=== PATIENT | male | born 1990 | race African-American/Black ===

== ENCOUNTER 2017-10-06 02:37 | Emergency (ER) | payer OTHER ==
--- NOTE | 2017-10-06 03:20 | ED ---
URI HPI - General Chief Complaint: Upper Respiratory Infection Stated Complaint: ENT Time Seen by Provider: 10/06/17 02:59 Source: patient, RN notes reviewed Mode of arrival: ambulatory Limitations: no limitations - History of Present Illness Initial Comments: This is a 27-year-old male who presents to the emergency department with chief complaint of sore throat and sinus congestion. Patient states that his symptoms started 3 days ago. He does report intermittent fevers and chills but has not had any recorded temperatures. He does state that he has a cough but is a current every day smoker. Patient states that he has difficulty swallowing due to the pain. Denies any difficulty breathing. Denies abdominal pain, nausea or vomiting. - Related Data Previous Rx's Medication Instructions Recorded Amoxicillin 875 mg PO Q12HR #20 tablet 10/06/17 Allergies Allergy/AdvReac Type Severity Reaction Status Date / Time shellfish derived [Shellfish] Allergy Rash/Hives Verified 10/06/17 02:54 Review of Systems ROS Statement: Those systems with pertinent positive or pertinent negative responses have been documented in the HPI. ROS Other: All systems not noted in ROS Statement are negative. Past Medical History Additional Past Medical History / Comment(s): hyperthyroid. History of Any Multi-Drug Resistant Organisms: None Reported Past Surgical History: No Surgical Hx Reported Past Psychological History: No Psychological Hx Reported Smoking Status: Current every day smoker Past Alcohol Use History: Daily, Heavy Past Drug Use History: None Reported General Exam - General Exam Comments Initial Comments: General: Awake and alert, well-developed; in no apparent distress. Afebrile. HEENT: Head atraumatic, normocephalic. Pupils are equal, round and reactive to light. Extraocular movements intact. Oropharynx moist with erythema. No tonsillar enlargement or exudates noted. Neck: Supple. Normal ROM. No tender cervical lymphadenopathy. Cardiovascular: Regular rate and rhythm. No murmurs, rubs or gallops. Chest symmetrical. Respiratory: Lungs clear to auscultation bilaterally. No wheezes, rales or rhonchi. Normal respiratory effort with no use of accessory muscles. Musculoskeletal: Normal ROM, no tenderness bilateral upper and lower extremities. Ambulating normally. Skin: [place], warm and dry without rashes or lesions. Neurological: Alert and oriented x3. CN II-XII grossly intact. Speech is fluent and answers are appropriate. No focal neuro deficits. Psychiatric: Normal mood and affect. No overt signs of depression or anxiety noted. Limitations: no limitations Course Vital Signs 10/06/17 02:50 Temperature 98.8 F Pulse Rate 106 H Respiratory 16 Rate Blood Pressure 135/83 O2 Sat by Pulse 99 Oximetry Medical Decision Making - Medical Decision Making This is a 27-year-old male who presents to the emergency department with chief complaint of sore throat. On presentation, vital signs are stable and patient is afebrile. Rapid strep was positive. Patient will be started on antibiotics. He is in no acute distress and will be discharged home. He is in agreement and voices understanding. All questions were answered. - Lab Data Lab Results 10/06/17 Range/Units 03:32 Group A Strep Rapid Positive A (Negative) Disposition Clinical Impression: Acute streptococcal pharyngitis Disposition: HOME SELF-CARE Condition: Good Instructions: Strep Throat (ED) Additional Instructions: Please take medications as prescribed. Please follow up with primary care provider within 1-2 days. Return to emergency department if symptoms should worsen or any concerns arise. Prescriptions: Amoxicillin 875 mg PO Q12HR #20 tablet Referrals: None,Stated [Primary Care Provider] - 1-2 days Time of Disposition: 04:05
[2017-10-06] MEDS ORDERED: ACETAMINOPHEN TAB 500 MG TAB PO STA (04:25)
[2017-10-06 04:31] VITALS: BP 116/66; PULSE 94; RESP 18; TEMP 100.7
== END 2017-10-06 04:30 | disposition home or self-care (01) ==
LOC: EC 02:37
DX: J02.0 Streptococcal pharyngitis (principal); F17.200 Nicotine dependence, unspecified, uncomplicated; Z91.013 Allergy to seafood
CPT/HCPCS: 36415; 86308; 87430; 99283

== ENCOUNTER → 2024-03-17 | Outpatient (CLI) | payer OTHER ==
--- NOTE | 2024-04-19 15:22 | CONS ---
CONSULTATION 34-year-old gentleman having [facility] for possible obstructive sleep apnea-hypopnea syndrome. HISTORY OF PRESENT ILLNESS: Sleep-wake evaluation. The patient's usual sleep schedule on weekdays from 11 a.m. until 8:00 p.m. The patient works at [employer]. On days off, he does not have any regular schedule and goes to [place] anytime and gets up anytime. He does have problems with falling asleep, has TV set in bedroom. The patient usually sleeps on the side position with loud snoring and awakenings from sleep up to 3 times. The patient has difficulties to initiate sleep, has TV set in bedroom. No history of hypnagogic hallucinations, sleep paralysis or cataplexy. During the day, the patient feels sleepiness. [place] Sleepiness Scale increased to 11. The patient takes one nap in the morning. PAST MEDICAL HISTORY: Positive for Graves disease with a history of treatment with radioactive iodine. PAST SURGICAL HISTORY: None. MEDICATIONS: None. SOCIAL HISTORY: Positive history of smoking for about 10 pack years. Alcohol consumption occasional. REVIEW OF SYSTEMS: Snoring, multiple awakenings from sleep, sleepiness during the day. No fevers. No double vision. No recent chest pain. No shortness of breath. No abdominal pain. No bleeding episodes. No blood in the urine. No seizure episodes. FAMILY HISTORY: Hypertension, heart problems, arthritis, bronchitis, diabetes. PHYSICAL EXAMINATION: GENERAL: 34-year-old gentleman without distress. VITAL SIGNS: BP 165/98, HR 85, RR 18, height 5 feet 6-3/4 inches, weight 299.6 pounds, BMI 47.2, temperature 98.1, oxygen saturation at room air 97%. HEENT: PERRLA, EOMI, evaluation of oropharynx showed extremely low position of soft palate, Mallampati 4. NECK: Wide and 20-1/3 inches in circumference. Supple, no JVD. Thyroid is not palpable. LUNGS: Clear to percussion and to auscultation. Good air exchange. No wheezing or rhonchi. HEART: S1, S2 regular. No murmurs, gallops, or rubs. ABDOMEN: Obese. Soft and nontender. Bowel sounds are present. No organomegaly appreciated. EXTREMITIES: No clubbing or cyanosis. CAB STARTER: Awake, alert, and oriented X3. Cranial nerves 2 to 7 intact. There is no fasciculation or atrophy noted. No focal deficits observed. IMPRESSION: 1. Loud snoring, multiple awakenings from sleep, extremely low position of soft palate, Mallampati 4, extremely wide neck, 20-1/3 inches in circumference, sleepiness with [place] Sleepiness Scale increased to 11. Obstructive sleep apnea- hypopnea syndrome, possibly in severe range. 2. Obesity, BMI 47.2. 3. Hypertension in the office today. 4. History of Graves disease, status post treatment with radioactive iodine. PLAN: 1. Polysomnography for evaluation of the patient breathing during sleep. 2. Following plan after reading sleep study. 3. Aggressive losing weight program. 4. Sleep hygiene with time in bed for at least 8 hours. 5. Precautions related to driving. No driving if feeling sleepiness. Thank you very much for referring this patient for consultation. MMODL / IJN: [id number] /
== END ==
LOC: 3 N SLEEP 14:18
PROVIDERS: ATTEND Internal Medicine
CPT/HCPCS: 99202

== ENCOUNTER 2024-11-13 12:28 | Emergency (ER) | payer OTHER ==
[2024-11-13 12:34] VITALS: RESP 20
--- NOTE | 2024-11-13 13:43 | XR ---
EXAMINATION TYPE: XR ribs RT w pa chest xray DATE OF EXAM: 11/13/2024 1:26 PM COMPARISON: None. CLINICAL INDICATION: Male, 34 years old with history of Pain, pain TECHNIQUE: 2 view(s) obtained. Exam supplemental frontal chest FINDINGS: Heart size is enlarged. Pulmonary vasculature is normal. Mild infiltrate may be silhouetting the left diaphragm. No pneumothorax is evident. Right ribs are examined in 2 projections. No displaced rib fractures evident. IMPRESSION: 1. No acute right rib fractures. [facility], , 11/13/2024 1:40 PM
--- NOTE | 2024-11-13 14:20 | ED ---
General Adult HPI - General Chief complaint: Recheck/Abnormal Lab/Rx Stated complaint: right rib pain Time Seen by Provider: 11/13/24 14:00 Source: patient, RN notes reviewed Mode of arrival: ambulatory Limitations: no limitations - History of Present Illness Initial comments: This is a 34-year-old male who presents to the emergency department for pain o sergio the right rib cage. States that he first noticed this a week ago, however the pain has started to become substantially worse. Denies any injuries. Pain is worse when he moves, coughs, or sneezes. Does not necessarily feel like he is more short of breath than normal. Denies any pain in the chest or radiation of pain down into the abdomen or back, it is all directly on the side. denies any nausea or vomiting. Denies any history of similar pain in the past. - Related Data Previous Rx's Medication Instructions Recorded Amoxicillin 875 mg PO Q12HR #20 tablet 10/06/17 Cyclobenzaprine [Flexeril] 10 mg PO TID PRN #30 tab 11/13/24 Ibuprofen 800 mg PO Q8H PRN #30 tab 11/13/24 Lidocaine 5% Patch [Lidoderm 5% 1 patch TOPICAL DAILY PRN #30 patch 11/13/24 Patch] Allergies Allergy/AdvReac Type Severity Reaction Status Date / Time shellfish derived [Shellfish] Allergy Rash/Hives Verified 11/13/24 12:33 Review of Systems ROS Statement: Those systems with pertinent positive or pertinent negative responses have been documented in the HPI. ROS Other: All systems not noted in ROS Statement are negative. Past Medical History Additional Past Medical History / Comment(s): hyperthyroid. History of Any Multi-Drug Resistant Organisms: None Reported Past Surgical History: No Surgical Hx Reported Past Psychological History: No Psychological Hx Reported Smoking Status: Current every day smoker Past Alcohol Use History: Daily, Heavy Past Drug Use History: None Reported General Exam Limitations: no limitations General appearance: alert, in no apparent distress Head exam: Present: atraumatic, normocephalic, normal inspection Respiratory exam: Present: normal lung sounds bilaterally, chest wall tenderness (Right rib cage). Absent: respiratory distress, wheezes, rales, rhonchi, stridor Cardiovascular Exam: Present: regular rate, normal rhythm GI/Abdominal exam: Present: soft. Absent: distended, tenderness Neurological exam: Present: alert, oriented X3, CN II-XII intact Psychiatric exam: Present: normal affect, normal mood Skin exam: Present: warm, dry, intact, normal color. Absent: rash Course Vital Signs 11/13/24 11/13/24 11/13/24 12:31 14:33 15:47 Temperature 97.6 F 97.9 F Pulse Rate 91 88 85 Respiratory 20 20 20 Rate Blood Pressure 160/109 156/96 147/93 O2 Sat by Pulse 99 97 Oximetry Medical Decision Making - Medical Decision Making This is a 34-year-old male who presents to the emergency department for right side pain. Was pt. sent in by a medical professional or institution? @ -No Did you speak to anyone other than the patient for history? @ -No Did you review nursing and triage notes? @ -Yes, and I agree, it is accurate with regards to the patient's symptoms. Were old charts reviewed? @ -No Differential Diagnosis? @ -Rib contusion, pneumothorax, pneumonia, PE, this is not meant to be an all- inclusive list. EKG interpreted by me (3pts min.)? @ -EKG interpreted by me demonstrating the following: Sinus rhythm. Ventricular rate 83 bpm, IN interval 173 ms, QRS duration 130 ms, QTc 430 ms. X-rays interpreted by me (1pt min.)? @ -Chest x-ray obtained, my interpretation identifies no localized consolidations or infiltrates. CT interpreted by me (1pt min.)? @ -Not obtained U/S interpreted by me (1pt. min.)? @ -Not obtained What testing was considered but not performed? (CT, X-rays, U/S, labs)? Why? @ -None What meds were considered but not given? Why? @ -None Did you discuss the management of the patient with other professionals? @ -No Did you reconcile home meds? @ -No Was smoking cessation discussed for >3mins.? @ -I discussed smoking cessation for greater than 3 minutes. The risk of smoking were discussed with the patient including but not limited to risks of cancer, stroke, coronary artery disease and COPD. Also discussed with patient were multiple methods of quitting smoking. Lastly we discussed the financial cost of smoking. Was critical care preformed (if so, how long)? @ -No Were there social determinants of health that impacted care today? How? (Homelessness, low income, unemployed, alcoholism, drug addiction, transportation, low edu. Level, literacy, decrease access to med. care, detention, rehab)? @ -No Was there de-escalation of care discussed even if they declined? (Discuss DNR or withdrawal of care, Hospice)? @ -No What co-morbidities impacted this encounter? (DM, HTN, Smoking, COPD, CAD, Cancer, CVA, Hep., AIDS, mental health diagnosis, sleep apnea, morbid obesity)? @ -Smoking Was patient admitted / discharged? @ -Discharged. We did obtain lab work including a D-dimer and troponin to evaluate for the possibility of a pulmonary embolus. Lab work was unremarkable. D-dimer and troponin negative. X-ray of the chest and right rib cage obtained revealing no acute process. Symptoms likely musculoskeletal in nature given that it is substantially worse with any movement. I did offer a CT scan to look for any other acute pathology causing his symptoms. However, patient declined and states that he would rather go home and see how he does. Ibuprofen, Flexeril, and lidocaine patches prescribed. Advised follow-up with his PCP for reevaluation. Patient discharged home in stable condition. Case discussed with ED attending, Dr. Enrique. Return precautions reviewed in depth, the patient is instructed to return to the emergency department with any new, worsening, or concerning symptoms. Patient verbalized understanding. Undiagnosed new problem with uncertain prognosis? @ -None Drug Therapy requiring intensive monitoring for toxicity (Heparin, Nitro, Insulin, Cardizem)? @ -None Were any procedures done? @ -None Diagnosis/symptom? @ -Right side pain, pain over right rib cage Acute, or Chronic, or Acute on Chronic? @ -Acute Uncomplicated (without systemic symptoms) or Complicated (systemic symptoms)? @ -Uncomplicated Side effects of treatment? @ -None Exacerbation, Progression, or Severe Exacerbation] @ -Not applicable Poses a threat to life or bodily function? @ -No - Lab Data Result diagrams: 11/13/24 14:37 11/13/24 14:37 Lab Results 11/13/24 11/13/24 11/13/24 Range/Units 14:37 14:37 14:37 WBC 6.27 (4.50-10.00) 10*3/uL RBC 5.63 H (4.40-5.60) 10*6/uL Hgb 16.5 (13.0-17.0) g/dL Hct 47.2 (39.6-50.0) % MCV 83.8 (80.0-97.0) fL MCH 29.3 (27.0-32.0) pg MCHC 35.0 (32.0-37.0) g/dL Plt Count 203 (140-440) 10*3/uL MPV 10.3 (9.5-12.2) fL Immature Gran % (Auto) 0.5 % Neutrophils % 50.6 % Lymphocytes % 37.2 % Monocytes % 8.6 % Eosinophils % 1.8 % Basophils % 1.3 % Immature Gran # 0.03 (0.00-0.04) 10*3/uL Neutrophils # 3.18 (1.80-7.70) 10*3/uL Lymphocytes # 2.33 (0.90-5.00) 10*3/uL Monocytes # 0.54 (0.20-1.00) 10*3/uL Eosinophils # 0.11 (0.04-0.35) 10*3/uL Basophils # 0.08 (0.00-0.10) 10*3/uL Manual Slide Review Performed Immature Plt Fraction 4.6 (1.1-6.1) % D-Dimer 0.20 (<0.60) mg/L FEU Sodium 140 (137-145) mmol/L Potassium 4.6 (3.5-5.1) mmol/L Chloride 102 (98-107) mmol/L Carbon Dioxide 30 (22-30) mmol/L Anion Gap 8 mmol/L BUN 15 (9-20) mg/dL Creatinine 0.85 (0.66-1.25) mg/dL Est GFR (CKD-EPI)AfAm >90 (>60 ml/min/1.73 sqM) Est GFR (CKD-EPI)NonAf >90 (>60 ml/min/1.73 sqM) Glucose 104 H (74-99) mg/dL Calcium 9.5 (8.4-10.2) mg/dL Total Bilirubin 1.2 (0.2-1.3) mg/dL AST 39 (17-59) U/L ALT 40 (4-49) U/L Alkaline Phosphatase 44 (38-126) U/L Troponin I (0.000-0.034) ng/mL Total Protein 8.0 (6.3-8.2) g/dL Albumin 4.7 (3.5-5.0) g/dL 11/13/24 Range/Units 14:37 WBC (4.50-10.00) 10*3/uL RBC (4.40-5.60) 10*6/uL Hgb (13.0-17.0) g/dL Hct (39.6-50.0) % MCV (80.0-97.0) fL MCH (27.0-32.0) pg MCHC (32.0-37.0) g/dL Plt Count (140-440) 10*3/uL MPV (9.5-12.2) fL Immature Gran % (Auto) % Neutrophils % % Lymphocytes % % Monocytes % % Eosinophils % % Basophils % % Immature Gran # (0.00-0.04) 10*3/uL Neutrophils # (1.80-7.70) 10*3/uL Lymphocytes # (0.90-5.00) 10*3/uL Monocytes # (0.20-1.00) 10*3/uL Eosinophils # (0.04-0.35) 10*3/uL Basophils # (0.00-0.10) 10*3/uL Manual Slide Review Immature Plt Fraction (1.1-6.1) % D-Dimer (<0.60) mg/L FEU Sodium (137-145) mmol/L Potassium (3.5-5.1) mmol/L Chloride (98-107) mmol/L Carbon Dioxide (22-30) mmol/L Anion Gap mmol/L BUN (9-20) mg/dL Creatinine (0.66-1.25) mg/dL Est GFR (CKD-EPI)AfAm (>60 ml/min/1.73 sqM) Est GFR (CKD-EPI)NonAf (>60 ml/min/1.73 sqM) Glucose (74-99) mg/dL Calcium (8.4-10.2) mg/dL Total Bilirubin (0.2-1.3) mg/dL AST (17-59) U/L ALT (4-49) U/L Alkaline Phosphatase (38-126) U/L Troponin I 0.012 (0.000-0.034) ng/mL Total Protein (6.3-8.2) g/dL Albumin (3.5-5.0) g/dL - Radiology Data Radiology results: report reviewed, image reviewed Disposition Clinical Impression: Right sided abdominal pain, Rib pain on right side, Nicotine dependence Disposition: HOME SELF-CARE Additional Instructions: Return to the emergency department with any new, worsening, or concerning sy mptoms. Alternate with ibuprofen and Tylenol as needed for pain relief. You can also apply the lidocaine patches daily. Reach out to the primary care providers listed below to become established for ongoing medical care and reevaluation of ongoing symptoms. Prescriptions: Cyclobenzaprine [Flexeril] 10 mg PO TID PRN #30 tab PRN Reason: Pain Ibuprofen 800 mg PO Q8H PRN #30 tab PRN Reason: Pain Lidocaine 5% Patch [Lidoderm 5% Patch] 1 patch TOPICAL DAILY PRN #30 patch PRN Reason: Pain Is patient prescribed a controlled substance at d/c from ED?: No Referrals: None,Stated [Primary Care Provider] - 1-2 days Forms: Area PCPs Time of Disposition: 15:39
[2024-11-13] MEDS: KETOROLAC 15 MG/ML 1 ML VIAL IM STA (14:55)
[2024-11-13] MEDS: ORPHENADRINE 30 MG/ML 2 ML VIAL IM STA (14:56)
[2024-11-13 15:06] LABS: Basophils # (A) 0.08 10*3/uL (0.00-0.10); Basophils % (A) 1.3 %; Eosinophils # (A) 0.11 10*3/uL (0.04-0.35); Eosinophils % (A) 1.8 %; HCT 47.2 % (39.6-50.0); HGB 16.5 g/dL (13.0-17.0); Immature Platelet Fraction 4.6 % (1.1-6.1); Lymphocytes # (A) 2.33 10*3/uL (0.90-5.00); Lymphocytes % (A) 37.2 %; MCH 29.3 pg (27.0-32.0); MCV 83.8 fL (80.0-97.0); Mean Platelet Volume 10.3 fL (9.5-12.2); Monocytes # (A) 0.54 10*3/uL (0.20-1.00); Monocytes % (A) 8.6 %; Neutrophils # (A) 3.18 10*3/uL (1.80-7.70); Neutrophils % (A) 50.6 %; Platelet Count 203 10*3/uL (140-440); RBC 5.63 10*6/uL (4.40-5.60); RDW 13.4 % (11.5-14.5); WBC 6.27 10*3/uL (4.50-10.00)
[2024-11-13 15:10] LABS: ALT 40 U/L (4-49); African American GFR (CKD) >90 (>60 ml/min/1.73 sqM); Anion Gap 8 mmol/L; Blood Urea Nitrogen 15 mg/dL (9-20); Calcium 9.5 mg/dL (8.4-10.2); Carbon Dioxide 30 mmol/L (22-30); Chloride 102 mmol/L (98-107); Glucose 104 mg/dL (74-99); Non-African American GFR(CKD) >90 (>60 ml/min/1.73 sqM); Sodium 140 mmol/L (137-145); Total Bilirubin 1.2 mg/dL (0.2-1.3)
[2024-11-13 15:24] LABS: Potassium 4.6 mmol/L (3.5-5.1)
[2024-11-13 15:25] LABS: AST 39 U/L (17-59); Albumin 4.7 g/dL (3.5-5.0); Alkaline Phosphatase 44 U/L (38-126)
[2024-11-13] MEDS: traMADol 50 MG STARTER PACK 3 TAB BTL PO STA (15:42)
[2024-11-13 15:48] VITALS: BP 147/93; PULSE 85; TEMP 97.9
== END 2024-11-13 15:47 | disposition home or self-care (01) ==
LOC: EC 12:28
DX: R07.81 Pleurodynia (principal); R10.9 Unspecified abdominal pain; F17.200 Nicotine dependence, unspecified, uncomplicated; Z91.013 Allergy to seafood
CPT/HCPCS: 36415; 93005; 85379; 80053; 84484; 85025; 71101; 99283; 96372 ×2; 99406; J2360; J1885